=== PATIENT | male | born 1995 | race Caucasian/White ===

== ENCOUNTER 2020-05-30 19:42 | Emergency (ER) | payer BC, SELFPAY ==
[2020-05-30] MEDS ORDERED: FLUORESCEIN SODIUM 1 MG/WRAP ONE ×2 (20:55→21:05)
[2020-05-30] MEDS ORDERED: NA CHLORIDE 0.9% 1,000 ML ONE (20:55)
[2020-05-30] MEDS ORDERED: TETRACAINE HCL 0.5% 4ML OPTH ONE (20:55)
[2020-05-30] MEDS ORDERED: DIPHENHYDRAMINE 50 MG/ML VIAL ONE (20:55)
[2020-05-30] MEDS ORDERED: METOCLOPRAMIDE 10 MG/2mL INJ ONE (20:55)
[2020-05-30 20:57] LABS: Absolute Lymphocytes (CBC) 0.8 K/uL (0.7-4.9); Basophils % 0.4 % (0-1.3); Hematocrit 42.5 % (39.6-49.0); Lymphocytes % 12.6 % (15.3-44.8); MPV 9.1 fL (7.6-11.3); RBC Red Blood Cell Count 4.67 M/uL (4.33-5.43)
[2020-05-30 21:20] LABS: Bicarbonate 29 mmol/L (21-32); Glucose Level 95 mg/dL (74-106); Sodium Level 141 mmol/L (136-145)
[2020-05-30 21:21] LABS: ALT/SGPT 25 U/L (12-78); AST/SGOT 11 U/L (15-37); Albumin 4.2 g/dL (3.4-5.0); Alkaline Phosphatase 56 U/L (45-117); BUN Blood Urea Nitrogen 13 mg/dL (7-18); Bilirubin Direct 0.2 mg/dL (0-0.2); Bilirubin Total 0.5 mg/dL (0.2-1.0); Protein, Total 7.8 g/dL (6.4-8.2); Troponin (Emerg Dept Use Only) < 0.02 ng/mL (0.0-0.045)
[2020-05-30 22:06] LABS: Barbiturates NEGATIVE (NEGATIVE); Benzodiazepines NEGATIVE (NEGATIVE); Cocaine NEGATIVE (NEGATIVE); METHAMPHETAM NEGATIVE (NEGATIVE); Methadone NEGATIVE (NEGATIVE); Opiates NEGATIVE (NEGATIVE); Phencyclidine NEGATIVE (NEGATIVE); THC Cannibis NEGATIVE (NEGATIVE)
[2020-05-30 22:09] LABS: Urine Blood NEGATIVE (NEG); Urine Glucose NEGATIVE (NEG); Urine Protein TRACE (NEG); Urine Specific Gravity >1.030 (1.005-1.030)
--- NOTE | 2020-05-30 22:43 | ER ---
Nurse's Notes [facility] Name: Clifford Pulido Age: 24 yrs Sex: Male : 1995 Arrival Date: 05/30/2020 Time: 19:44 Bed 4 Private MD: Diagnosis: Headache;Dizziness and giddiness; Right Corneal Abrasion Presentation: 05/30 19:49 Chief complaint: Patient states: Last hour of work today saw floaters in field of ll1 vision. 30 min later had pain behind right eye with nausea. + dizziness at times. + pale. Coronavirus screen: Client denies travel out of the [place] in the last 14 days. nausea, Client presents with at least one sign or symptom that may indicate coronavirus-19. Standard/surgical mask placed on the client. Ebola Screen: Patient denies travel to an Ebola-affected area in the 21 days before illness onset. Initial Sepsis Screen: Does the patient meet any 2 criteria? No. Patient's initial sepsis screen is negative. Does the patient have a suspected source of infection? No. Patient's initial sepsis screen is negative. Risk Assessment: Do you want to hurt yourself or someone else? Patient reports no desire to harm self or others. Onset of symptoms was May 30, 2020. 19:49 Method Of Arrival: Ambulatory ll1 19:49 Acuity: GASTON 3 ll1 Triage Assessment: 20:30 Headache History: The patient has had previous headaches. General: Appears in no wh apparent distress. Pain: Pain began suddenly, Also complains of dizziness. Historical: - Allergies: 19:51 No Known Allergies; ll1 - PMHx: 19:51 Asthma; ll1 - Immunization history:: Flu vaccine is not up to date. - Social history:: Smoking status: Patient denies any tobacco usage or history of. Screenin:30 Abuse screen: Denies threats or abuse. Denies injuries from another. Nutritional wh screening: No deficits noted. Tuberculosis screening: No symptoms or risk factors identified. Fall Risk None identified. Assessment: 20:10 General: Appears in no apparent distress. Behavior is calm, cooperative, appropriate wh for age. Pain: Complains of pain in forehead and right orthodox Pain does not radiate. Pain currently is 6 out of 10 on a pain scale. 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 Gait is steady, Speech is normal, Facial symmetry appears normal, Pupils are PERRLA, Intact Reports blurred vision dizziness, headache in right parietal area, frontal area. Cardiovascular: Heart tones S1 S2. Respiratory: Airway is patent Respiratory effort is even, unlabored, Respiratory pattern is regular, symmetrical, Breath sounds are clear bilaterally. GI: Abdomen is flat, non-distended. : No signs and/or symptoms were reported regarding the genitourinary system. EENT: Reports blurred vision. Derm: Skin is intact, is healthy with good turgor, Skin is pink, warm \T\ dry. normal. Musculoskeletal: Circulation, motion, and sensation intact. 21:40 Reassessment: Patient appears in no apparent distress at this time. No changes from previously documented assessment. Patient and/or family updated on plan of care and expected duration. Pain level reassessed. Patient is alert, oriented x 3, equal unlabored respirations, skin warm/dry/pink. 22:45 Reassessment: Patient appears in no apparent distress at this time. Patient and/or family updated on plan of care and expected duration. Pain level reassessed. Patient is alert, oriented x 3, equal unlabored respirations, skin warm/dry/pink. Vital Signs: 19:49 BP 146 / 91; Pulse 88; Resp 17; Temp 98.1; Pulse Ox 95% ; Weight 108.86 kg; Height 6 ll1 ft. 3 in. (190.50 cm); Pain 5/10; 20:30 BP 116 / 77; Pulse 63; Resp 18; Pulse Ox 99% on R/A; 21:45 BP 118 / 96; Pulse 69; Resp 18; Pulse Ox 100% on R/A; 22:45 BP 145 / 74; Pulse 77; Resp 18; Pulse Ox 95% on R/A; 19:49 Body Mass Index 30.00 (108.86 kg, 190.50 cm) ll1 Visual Acuity: 22:34 Left Eye Visual acuity 20/25, Normal, React To Light, Reactive To Accomodation; Right wh Eye Visual acuity 20/25, Normal, React To Light, Reactive To Accomodation; Without Lenses; [place] Coma Score: 22:38 Eye Response: spontaneous(4). Verbal Response: oriented(5). Motor Response: obeys [facility] commands(6). Total: 15. ED Course: 19:44 Patient arrived in ED. cl3 19:51 Triage completed. ll1 19:51 Arm band placed on Patient placed in an exam room, on a stretcher. 1 19:52 Sean Boucher MD is Attending Physician. 7 20:00 Megan Lockhart is Primary Nurse. 20:30 Patient has correct armband on for positive identification. Bed in low position. Call light in reach. Side rails up X 1. Pulse ox on. NIBP on. 20:30 EKG done, by ED staff, reviewed by Sean Boucher MD. Inserted saline lock: 20 gauge in left antecubital area, using aseptic technique. Blood collected. 21:15 Assist provider with eye exam of both eyes. using fluorescein stain, Performed by Sean Boucher MD Patient tolerated well. 21:41 CT Head Brain wo Cont In Process Unspecified. EDMS 22:40 Ambrocio Graham MD is Referral Physician. [facility] 22:41 Amberly Hanson MD is Referral Physician. [facility] 23:00 IV discontinued, intact, bleeding controlled, No redness/swelling at site. Administered Medications: 20:50 Drug: NS 0.9% 1000 ml Route: IV; Rate: 1000 ml; Site: left antecubital; 22:59 Follow up: Response: No adverse reaction; IV Status: Completed infusion 20:52 Drug: Benadryl 25 mg Route: IVP; Site: left antecubital; 22:59 Follow up: Response: No adverse reaction 20:54 Drug: Reglan 10 mg Route: IVP; Site: left antecubital; 22:59 Follow up: Response: No adverse reaction 21:14 Drug: Tetracaine Drops 0.5 % 1 drops {Note: Administered by MD.} Route: Ophthalmic; Site: both eyes; 22:59 Follow up: Response: No adverse reaction Outcome: 22:42 Discharge ordered by MD. [facility] 22:59 Discharged to home ambulatory, with family. 22:59 Condition: stable 22:59 Discharge instructions given to patient, Instructed on discharge instructions, follow up and referral plans. medication usage, POC Demonstrated understanding of instructions, follow-up care, medications, POC Prescriptions given X 1. 23:00 Patient left the ED. Signatures: Dispatcher [employer] EDMegan Arzate Charde cl3 Terrell Ahuja RN RN ll1 Sean Boucher MD MD mh7
--- NOTE | 2020-05-30 22:43 | EDPHYS ---
Physician Documentation [facility] Name: Clifford Pulido Age: 24 yrs Sex: Male : 1995 Arrival Date: 05/30/2020 Time: 19:44 Bed 4 Private MD: ED Physician Sean Boucher HPI: 05/30 22:28 This 24 yrs old Male presents to ER via Ambulatory with complaints of mh7 Headache, Dizziness. 22:29 The patient complains of pain to the right eye. The patient complains of pain to the mh7 forehead. The patient describes the headache as intermittent, throbbing, waxing and waning. Onset: The symptoms/episode began/occurred today, at 16:00. Associated signs and symptoms: Pertinent positives: dizziness, nausea, Photophobia. Associated signs and symptoms: Pertinent positives: Pertinent negatives: altered mental status, fever, malaise, neck stiffness, paresthesias, rash, sinus congestion, sinus tenderness, vision loss, vomiting, weakness, vertigo. Severity of symptoms: At its worst the pain was moderate, earlier today, in the emergency department the pain has improved, moderately. Headache History: The patient has had previous headaches and this one is similar to previous episodes. The symptoms are alleviated by nothing. the symptoms are aggravated by lights, noise. Historical: - Allergies: 19:51 No Known Allergies; ll1 - PMHx: 19:51 Asthma; ll1 - Immunization history:: Flu vaccine is not up to date. - Social history:: Smoking status: Patient denies any tobacco usage or history of. ROS: 22:29 Constitutional: Negative for fever, chills, and weight loss, ENT: Negative for injury, mh7 pain, and discharge, Neck: Negative for injury, pain, and swelling, Cardiovascular: Negative for chest pain, palpitations, and edema, Respiratory: Negative for shortness of breath, cough, wheezing, and pleuritic chest pain, Back: Negative for injury and pain, : Negative for injury, bleeding, discharge, and swelling, MS/Extremity: Negative for injury and deformity, Skin: Negative for injury, rash, and discoloration, Psych: Negative for depression, anxiety, suicide ideation, homicidal ideation, and hallucinations, Allergy/Immunology: Negative for hives, rash, and allergies, Endocrine: Negative for neck swelling, polydipsia, polyuria, polyphagia, and marked weight changes, Hematologic/Lymphatic: Negative for swollen nodes, abnormal bleeding, and unusual bruising. Exam: 22:29 Constitutional: This is a well developed, well nourished patient who is awake, alert, mh7 and in no acute distress. Head/Face: Normocephalic, atraumatic. 22:29 ENT: Nares patent. No nasal discharge, no septal abnormalities noted. Tympanic membranes are normal and external auditory canals are clear. Oropharynx with no redness, swelling, or masses, exudates, or evidence of obstruction, uvula midline. Mucous membranes moist. Neck: Trachea midline, no thyromegaly or masses palpated, and no cervical lymphadenopathy. Supple, full range of motion without nuchal rigidity, or vertebral point tenderness. No Meningismus. Chest/axilla: Normal chest wall appearance and motion. Nontender with no deformity. No lesions are appreciated. Cardiovascular: Regular rate and rhythm with a normal S1 and S2. No gallops, murmurs, or rubs. Normal PMI, no JVD. No pulse deficits. Respiratory: Lungs have equal breath sounds bilaterally, clear to auscultation and percussion. No rales, rhonchi or wheezes noted. No increased work of breathing, no retractions or nasal flaring. Abdomen/GI: Soft, non-tender, with normal bowel sounds. No distension or tympany. No guarding or rebound. No evidence of tenderness throughout. Back: No spinal tenderness. No costovertebral tenderness. Full range of motion. Skin: Warm, dry with normal turgor. Normal color with no rashes, no lesions, and no evidence of cellulitis. MS/ Extremity: Pulses equal, no cyanosis. Neurovascular intact. Full, normal range of motion. Neuro: Awake and alert, GCS 15, oriented to person, place, time, and situation. Cranial nerves II-XII grossly intact. Motor strength 5/5 in all extremities. Sensory grossly intact. Cerebellar exam normal. Normal gait. Psych: Awake, alert, with orientation to person, place and time. Behavior, mood, and affect are within normal limits. 22:29 Eyes: Periorbital structures: appear normal, Pupils: equal, round, and reactive to light and accomodation, Extraocular movements: intact throughout, Conjunctiva: normal, Corneas: abrasion, that is moderate sized, on the right, at 6 o'clock, and small central abrasion, a fluorescein strip employed to appreciate the findings, Sclera: no appreciated abnormality, Lids and lashes: appear normal, funduscopic exam reveals no obvious abnormalities, Visual reyes: are intact, Nystagmus: is not appreciated, Examination of the other eye reveals no obvious gross abnormality, Intraocular pressure: right eye = 16mmHg, left eye = 16mmHg. Vital Signs: 19:49 BP 146 / 91; Pulse 88; Resp 17; Temp 98.1; Pulse Ox 95% ; Weight 108.86 kg; Height 6 ll1 ft. 3 in. (190.50 cm); Pain 5/10; 20:30 BP 116 / 77; Pulse 63; Resp 18; Pulse Ox 99% on R/A; wh 21:45 BP 118 / 96; Pulse 69; Resp 18; Pulse Ox 100% on R/A; wh 22:45 BP 145 / 74; Pulse 77; Resp 18; Pulse Ox 95% on R/A; wh 19:49 Body Mass Index 30.00 (108.86 kg, 190.50 cm) ll1 [place] Coma Score: 22:38 Eye Response: spontaneous(4). Verbal Response: oriented(5). Motor Response: obeys mh7 commands(6). Total: 15. Visual Acuity: 22:34 Left Eye Visual acuity 20/25, Normal, React To Light, Reactive To Accomodation; Right wh Eye Visual acuity 20/25, Normal, React To Light, Reactive To Accomodation; Without Lenses; MDM: 20:20 Patient medically screened. mh7 22:38 Differential diagnosis: cluster headache, glaucoma, hypoglycemia, hyponatremia, mh7 intracerebral hemorrhage, migraine, sinusitis, tension headache, Corneal Abrasion. Data reviewed: vital signs, nurses notes, lab test result(s), cardiac enzymes, CBC, drug level(s), electrolytes, Flu: urinalysis, EKG, radiologic studies, CT scan. Data interpreted: Pulse oximetry: on room air is 100 %. Interpretation: normal. Counseling: I had a detailed discussion with the patient and/or guardian regarding: the historical points, exam findings, and any diagnostic results supporting the discharge/admit diagnosis, lab results, radiology results, the need for outpatient follow up, to return to the emergency department if symptoms worsen or persist or if there are any questions or concerns that arise at home. Response to treatment: the patient's symptoms have resolved after treatment, the patient's blood pressure is in an acceptable range, mental status has returned to baseline, the patient no longer shows bradycardia, the patient is not short of breath, the patient is not tachycardic, the patient's pain is gone, the patient's temperature has normalized. 05/30 20:22 Order name: CBC with Diff; Complete Time: 21:14 mh7 05/30 20:22 Order name: Basic Metabolic Panel; Complete Time: 21:28 mh7 05/30 20:22 Order name: LFT's; Complete Time: 21:28 mh7 05/30 20:22 Order name: UDS; Complete Time: 22:26 mh7 05/30 20:22 Order name: Influenza Screen (a \T\ B); Complete Time: 21:14 mh7 05/30 20:22 Order name: Urine Dipstick-Ancillary (obtain specimen); Complete Time: 21:31 mh7 05/30 20:22 Order name: CT Head Brain wo Cont mh7 05/30 20:59 Order name: Troponin (Emerg Dept Use Only); Complete Time: 21:28 EDMS 05/30 21:36 Order name: Urine Dipstick--Ancillary (enter results); Complete Time: 22:26 tt3 05/30 20:36 Order name: EKG - Nurse/Tech; Complete Time: 20:53 mh7 05/30 20:38 Order name: Fluoresene Opth strip; Complete Time: 20:53 mh7 Administered Medications: 20:50 Drug: NS 0.9% 1000 ml Route: IV; Rate: 1000 ml; Site: left antecubital; 22:59 Follow up: Response: No adverse reaction; IV Status: Completed infusion 20:52 Drug: Benadryl 25 mg Route: IVP; Site: left antecubital; 22:59 Follow up: Response: No adverse reaction 20:54 Drug: Reglan 10 mg Route: IVP; Site: left antecubital; 22:59 Follow up: Response: No adverse reaction 21:14 Drug: Tetracaine Drops 0.5 % 1 drops {Note: Administered by MD.} Route: Ophthalmic; Site: both eyes; 22:59 Follow up: Response: No adverse reaction wh Disposition: 05/30/20 22:42 Discharged to Home. Impression: Headache, Dizziness and giddiness, Right Corneal Abrasion. - Condition is Stable. - Discharge Instructions: Dizziness, General Headache Without Cause, Corneal Abrasion, [id number], Dizziness, [id number]. - Prescriptions for Ciloxan 0.3 % Ophthalmic Drops - instill 2 drop by OPHTHALMIC route every 6 hours for 7 days; 5 milliliter. - Medication Reconciliation Form, Thank You Letter, Antibiotic Education, Prescription Opioid Use form. - Follow up: Ambrocio Graham MD; When: 1 - 2 days; Reason: Worsening of condition, Recheck today's complaints. Follow up: Private Physician; When: 1 - 2 days; Reason: Worsening of condition, Recheck today's complaints, Continuance of care, Re-evaluation by your physician. Follow up: Amberly Hanson MD; When: 1 - 2 days; Reason: Worsening of condition, Recheck today's complaints. - Problem is new. - Symptoms have improved. Signatures: Dispatcher [employer] [facility] Megan Lockhart Terrell Ahuja RN RN ll1 Sean Boucher MD MD mh7 Corrections: (The following items were deleted from the chart) 20:59 20:51 TROPONIN (EMERG DEPT USE ONLY)+C.LAB.BRZ ordered. [facility] EDID 23:00 22:42 05/30/2020 22:42 Discharged to Home. Impression: Headache; Dizziness and wh giddiness; Right Corneal Abrasion. Condition is Stable. Forms are Medication Reconciliation Form, Thank You Letter, Antibiotic Education, Prescription Opioid Use. Follow up: Ambrocio Graham; When: 1 - 2 days; Reason: Worsening of condition, Recheck today's complaints. Follow up: Private Physician; When: 1 - 2 days; Reason: Worsening of condition, Recheck today's complaints, Continuance of care, Re-evaluation by your physician. Follow up: Amberly Hanson; When: 1 - 2 days; Reason: Worsening of condition, Recheck today's complaints. Problem is new. Symptoms have improved. 7
[2020-05-30 23:07] VITALS: TEMP 98.1
[2020-05-30 23:12] VITALS: BP 145/74; O2SAT 95
--- NOTE | 2020-05-31 14:33 | RAD REPORT ---
EXAM DESCRIPTION: CT - Head Brain Wo Cont - 05/31/2020 6:47 am CLINICAL HISTORY: DIZZINESS TECHNIQUE: Contiguous axial CT images obtained through the brain without IV contrast. Coronal and sa gittal reformatted images were provided. This exam was performed according to our departmental dose-optimization program, which includes autom ated exposure control, adjustment of the mA and/or kV according to patient size and/or use of iterati ve reconstruction technique. COMPARISON: None available for comparison FINDINGS: Brain: No significant white matter changes. No focal mass effect. Gay-white matter differ entiation is within normal limits. No hemorrhage. Ventricles: No ventriculomegaly or midline shift. Extra-axial spaces: No extra-axial collection or hemorrhage. Paranasal sinuses and mastoid air cells: Well-aerated Vessels: Unremarkable Bones: Unremarkable Soft tissues: Unremarkable IMPRESSION: No acute intracranial or extra-axial abnormality. Electronically signed by: Marybeth Kimball MD 05/30/2020 10:02 PM CDT Due to temporary technical issues with the PACS/Fluency reporting system, reports are being signed by the in house radiologist without review as a courtesy to ensure prompt reporting. The interpreting r adiologist is fully responsible for the content of the report.
--- NOTE | 2020-06-01 05:58 | EKG ---
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
--- OUTSIDE RECORDS SUMMARY | 2020-06-02 09:04 | XMS REPORT | Clinical Summary ---
:1995 Author Organization [facility] Address [address] [place] [address] Care Team Providers Name Role Phone Asked, Pcp Primary Care Provider Unavailable Allergies No Known Active Allergies Medications Medication Sig Dispensed Refills Start Date End Date Status naproxen (NAPROSYN) 500 Take 1 tablet 20 tablet 0 05/18/2019 1 MG tablet (500 mg total) by mouth 2 (two) times a day with meals for 30 days. cyclobenzaprine Take 1 tablet 20 tablet 0 05/18/2019 9 (FLEXERIL) 10 mg tablet (10 mg total) by mouth 2 (two) times a day as needed for muscle spasms for up to 30 days. Active Problems Not on file Social History Tobacco Use Types Packs/Day Years Used Date Never Smoker Smokeless Tobacco: Never Used Alcohol Use Drinks/Week oz/Week Comments Yes Sex Assigned at Date Recorded Not on file Last Filed Vital Signs Not on file Plan of Treatment Not on file Results Not on fileafter 06/01/2019 Advance Directives For more information, please contact: [phone] Type Date Recorded Patient English Instructor Explanati on Advance Directives, Living Will 05/18/2019 2:30 AM and Medical Power of Channel Marketing Coordinator
== END 2020-05-30 23:00 | disposition home or self-care (01) ==
LOC: ER 19:42
DX: R42 Dizziness and giddiness (principal); S05.01XA Injury of conjunctiva and corneal abrasion without foreign body, right eye, initial encounter
CPT/HCPCS: 36415; 70450; 80048; 80076; 80307; 81003; 84484; 85025; 87804; 93005; 96361; 96374; 96375; 99284; J1200; J2765; J7030

== ENCOUNTER 2020-10-03 11:55 | Emergency (ER) | payer BC, SELFPAY ==
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
[2020-10-03] MEDS ORDERED: CODEINE 30MG/APAP 300MG TAB ONE (14:13)
[2020-10-03 14:30] VITALS: BP 134/93; TEMP 98; O2SAT 99
--- OUTSIDE RECORDS SUMMARY | 2020-10-04 22:37 | XMS REPORT | Clinical Summary ---
:1995 Author Organization [facility] Address [address] [place] [address] Care Team Providers Name Role Phone Asked, Pcp Primary Care Provider Unavailable Allergies No Known Active Allergies Medications No known medications Active Problems Not on file Social History Tobacco Use Types Packs/Day Years Used Date Never Smoker Smokeless Tobacco: Never Used Alcohol Use Drinks/Week oz/Week Comments Yes Sex Assigned at Date Recorded Not on file Last Filed Vital Signs Not on file Plan of Treatment Not on file Results Not on fileafter 10/04/2019 Advance Directives For more information, please contact: [phone] Type Date Recorded Patient [facility] Director Explanati on Advance Directives, Living Will 05/18/2019 2:30 AM and Medical Power of Cooker Chip
== END 2020-10-03 14:00 | disposition home or self-care (01) ==
LOC: ER 11:55
PROC: 0HQ0XZZ Repair Scalp Skin, External Approach (ICD-10-PCS; principal; 2020-10-03)
DX: S01.01XA Laceration without foreign body of scalp, initial encounter (principal); Z23 Encounter for immunization; X99.0XXA Assault by sharp glass, initial encounter; Y92.009 Unspecified place in unspecified non-institutional (private) residence as the place of occurrence of the external cause; J45.909 Unspecified asthma, uncomplicated
CPT/HCPCS: 70450; 99283

== ENCOUNTER 2020-10-12 17:44 | Emergency (ER) | payer SELFPAY, BC ==
--- NOTE | 2020-10-12 18:12 | ER ---
Nurse's Notes [facility] Name: Clifford Pulido Age: 25 yrs Sex: Male : 1995 Arrival Date: 10/12/2020 Time: 17:45 Bed Waiting Private MD: Diagnosis: Encounter for removal of sutures-3 serafin Presentation: 10/12 18:07 Chief complaint: Patient states: Needs serafin removed from Left side of head. No fever ll1 , redness, or drainage. Coronavirus screen: Client denies travel out of the [place] in the last 14 days. At this time, the client does not indicate any symptoms associated with coronavirus-19. Ebola Screen: Patient denies travel to an Ebola-affected area in the 21 days before illness onset. Initial Sepsis Screen: Does the patient meet any 2 criteria? No. Patient's initial sepsis screen is negative. Does the patient have a suspected source of infection? Yes: Skin breakdown/wound. Risk Assessment: Do you want to hurt yourself or someone else? Patient reports no desire to harm self or others. Onset of symptoms was October 03, 2020. 18:07 Method Of Arrival: Ambulatory ll1 18:07 Acuity: GASTON 5 ll1 Triage Assessment: 18:08 General: Appears in no apparent distress. Behavior is calm, cooperative, appropriate ll1 for age. Pain: Denies pain. Derm: Reports 3 serafin removed from L forehead. Tolerated well. Historical: - Allergies: 18:08 No Known Drug Allergies; ll1 - PMHx: 18:08 Asthma; ll1 - PSHx: 18:08 None; ll1 - Immunization history:: Flu vaccine is not up to date. - Social history:: Smoking status: Patient denies any tobacco usage or history of. Screenin:08 Abuse screen: Denies threats or abuse. Nutritional screening: No deficits noted. ll1 Tuberculosis screening: No symptoms or risk factors identified. Fall Risk None identified. Total Bean Fall Scale indicates No Risk (0-24 pts). Vital Signs: 18:07 BP 134 / 94; Pulse 71; Resp 17; Temp 97.2; Pulse Ox 99% ; Weight 108.86 kg; Height 6 ll1 ft. 3 in. (190.50 cm); Pain 0/10; 18:07 Body Mass Index 30.00 (108.86 kg, 190.50 cm) ll1 ED Course: 17:45 Patient arrived in ED. rg4 17:57 Chintan Haider PA is PHCP. cp 17:57 Jasmin De Luna MD is Attending Physician. cp 18:08 Triage completed. ll1 18:08 Arm band placed on Patient placed in an exam room, on a stretcher. ll1 18:09 Patient has correct armband on for positive identification. Bed in low position. Call ll1 light in reach. Side rails up X 1. Cardiac monitoring not applicable on this patient. 18:09 No provider procedures requiring assistance completed. Patient did not have IV access ll1 during this emergency room visit. Administered Medications: No medications were administered Outcome: 18:11 Discharge ordered by . cp 18:15 Discharged to home ambulatory. ll1 18:15 Condition: stable 18:15 Discharge instructions given to patient, Instructed on discharge instructions, follow up and referral plans. Demonstrated understanding of instructions, follow-up care. 18:15 Patient left the ED. 1 Signatures: Chintan Haider PA PA cp Garcia, Rubi rg4 Terrell Ahuja, RN RN 1
--- NOTE | 2020-10-12 18:12 | EDPHYS ---
Physician Documentation [facility] Name: Clifford Pulido Age: 25 yrs Sex: Male : 1995 Arrival Date: 10/12/2020 Time: 17:45 Bed Waiting Private MD: ED Physician Jasmin De Luna HPI: 10/12 18:09 This 25 yrs old Male presents to ER via Ambulatory with complaints of Staple cp Removal. 18:09 The patient has serafin on the scalp. Previous treatment: The patient was initially cp treated on October 03, 2020, Treatment type: The patient's original treatment included serafin. Sutures/serafin progress: The patient has no c/o's. The wound is well-healing with no redness, swelling, discharge, or dehiscence reported. Historical: - Allergies: 18:08 No Known Drug Allergies; ll1 - PMHx: 18:08 Asthma; ll1 - PSHx: 18:08 None; ll1 - Immunization history:: Flu vaccine is not up to date. - Social history:: Smoking status: Patient denies any tobacco usage or history of. ROS: 18:09 All other systems are negative. cp Exam: 18:09 Head/face: Exam is negative for swelling, tenderness, left anterior scalp laceration cp appears well healed with [address] 18:09 Skin: Wound recheck: Staple laceration closure: the wound is healing well, the edges are well approximated, no evidence of dehiscence, no drainage, no erythema, no swelling. Vital Signs: 18:07 BP 134 / 94; Pulse 71; Resp 17; Temp 97.2; Pulse Ox 99% ; Weight 108.86 kg; Height 6 ll1 ft. 3 in. (190.50 cm); Pain 0/10; 18:07 Body Mass Index 30.00 (108.86 kg, 190.50 cm) ll1 MDM: 18:10 Data reviewed: vital signs, nurses notes, and as a result, I will discharge patient. cp 18:11 Patient medically screened. cp Administered Medications: No medications were administered Disposition: 18:15 Chart complete. cp 18:24 Co-signature as Attending Physician, Jasmin De Luna MD. ma2 Disposition: 10/12/20 18:11 Discharged to Home. Impression: Encounter for removal of sutures - 3 serafin. - Condition is Stable. - Discharge Instructions: Suture Removal, Care After. - Medication Reconciliation Form, Thank You Letter, Antibiotic Education, Prescription Opioid Use form. - Follow up: Private Physician; When: 1 - 2 days; Reason: Worsening of condition. - Problem is new. - Symptoms have improved. Signatures: Chintan Haider PA PA Jasmin Zambrano MD MD ma2 Terrell Ahuja RN RN ll1 Corrections: (The following items were deleted from the chart) 18:15 18:11 10/12/2020 18:11 Discharged to Home. Impression: Encounter for removal of sutures ll1 - 3 serafin. Condition is Stable. Forms are Medication Reconciliation Form, Thank You Letter, Antibiotic Education, Prescription Opioid Use. Follow up: Private Physician; When: 1 - 2 days; Reason: Worsening of condition. Problem is new. Symptoms have improved. cp
[2020-10-12 18:20] VITALS: BP 134/94; TEMP 97.2; O2SAT 99
== END 2020-10-12 18:15 | disposition home or self-care (01) ==
LOC: ER 17:44
DX: Z48.02 Encounter for removal of sutures (principal)
CPT/HCPCS: 99281

== ENCOUNTER 2022-03-25 12:14 | Emergency (ER) | payer SELFPAY ==
[2022-03-25] MEDS ORDERED: KETOROLAC 30 MG/ML INJ ONE (12:51)
[2022-03-25] MEDS ORDERED: CLINDAMYCIN 900MG/D5W 900 MG/50 ML IVPB IV ONE (12:51)
[2022-03-25] MEDS ORDERED: NA CHLORIDE 0.9% 1,000 ML ONE (12:51)
[2022-03-25 13:07] LABS: Absolute Lymphocytes (CBC) 1.1 K/uL (0.7-4.9); Hematocrit 44.1 % (39.6-49.0); Lymphocytes % 13.2 % (15.3-44.8); MCV 91.3 fL (80-100); MPV 8.1 fL (7.6-11.3); RBC Red Blood Cell Count 4.83 M/uL (4.33-5.43)
[2022-03-25 13:20] LABS: Potassium 3.8 mmol/L (3.5-5.1); Protein, Total 7.7 g/dL (6.4-8.2)
--- NOTE | 2022-03-25 13:59 | RAD REPORT ---
EXAM DESCRIPTION: CT - FC CLINICAL HISTORY: Maxillary/facial abscess COMPARISON: <Comparisons> TECHNIQUE: Axial 2 mm thick images of the face were obtained with sagittal and coronal reconstructio n images. All CT scans are performed using dose optimization technique as appropriate and may include automated exposure control or mA/KV adjustment according to patient size. FINDINGS: Dental caries and periapical lucencies associated with the right maxillary first and secon d molars. A small abscess is noted measuring approximately 11 millimeters along the lateral aspect of the maxilla near the roots of these teeth.The mandible is intact. No fractures identified. The globes and orbital contents are grossly unremarkable.Mucous retention cysts in the maxillary sinu ses. IMPRESSION: Periapical lucencies associated with the right upper second and third molar consistent p eriapical abscesses.
--- NOTE | 2022-03-25 14:30 | ER ---
Nurse's Notes [facility] Name: Clifford Pulido Age: 26 yrs Sex: Male : 1995 Arrival Date: 03/25/2022 Time: 12:18 Bed 11 Private MD: Diagnosis: Periapical abscess without sinus Presentation: 03/25 12:28 Chief complaint: Patient states: R upper jaw tooth and gum pain for 3 days. No fever. ss No N/V. Coronavirus screen: Vaccine status: Patient reports being unvaccinated. Client denies travel out of the [place] in the last 14 days. At this time, the client does not indicate any symptoms associated with coronavirus-19. Ebola Screen: Patient denies travel to an Ebola-affected area in the 21 days before illness onset. Initial Sepsis Screen: Does the patient meet any 2 criteria? HR > 90 bpm. No. Patient's initial sepsis screen is negative. Does the patient have a suspected source of infection? Yes: Other: tooth/gum. Risk Assessment: Do you want to hurt yourself or someone else? Patient reports no desire to harm self or others. Onset of symptoms was March 23, 2022. 12:28 Method Of Arrival: Ambulatory ss 12:28 Acuity: GASTON 4 ss Triage Assessment: 12:29 General: Appears uncomfortable, Behavior is cooperative, appropriate for age. Pain: ss Complains of pain in R jaw Pain currently is 10 out of 10 on a pain scale. Quality of pain is described as aching. EENT: Reports pain since R upper jaw tooth. Historical: - Allergies: 12:27 unknown antibiotic; ss - PMHx: 12:27 Asthma; ss - PSHx: 12:27 None; ss - Immunization history:: Client reports having NOT received the Covid vaccine. - Social history:: Smoking status: Patient denies any tobacco usage or history of. Screenin:39 Abuse screen: Denies threats or abuse. Nutritional screening: No deficits noted. ll1 Tuberculosis screening: No symptoms or risk factors identified. Fall Risk Total Bean Fall Scale indicates No Risk (0-24 pts). Assessment: 12:54 Reassessment: No changes from previously documented assessment. Patient and/or family ll1 updated on plan of care and expected duration. Pain level reassessed. Patient is alert, oriented x 3, equal unlabored respirations, skin warm/dry/pink. 14:48 Reassessment: Patient appears in no apparent distress at this time. Patient and/or ss family updated on plan of care and expected duration. Pain level reassessed. Patient states feeling better. Patient states symptoms have improved. Vital Signs: 12:28 BP 141 / 99; Pulse 97; Resp 17; Temp 98.8; Pulse Ox 100% ; Weight 113.4 kg; Height 6 ss ft. 3 in. (190.50 cm); Pain 10/10; 12:28 Body Mass Index 31.25 (113.40 kg, 190.50 cm) ED Course: 12:18 Patient arrived in ED. rg4 12:22 [facility] Duran [facility] jh7 12:22 Loreeli Land MD is Attending Physician. 7 12:29 Triage completed. ss 12:29 Arm band placed on. ss 12:30 Patient placed in an exam room, on a stretcher. ll1 12:38 Terrell Ahuja, SARAH is Primary Nurse. ll1 12:39 Patient has correct armband on for positive identification. Bed in low position. Call ll1 light in reach. Side rails up X 1. Cardiac monitoring not applicable on this patient. 12:54 Inserted saline lock: 20 gauge in left antecubital area, using aseptic technique. Blood mb7 collected. 12:54 CMP Sent. mb7 12:54 CBC with Diff Sent. mb7 13:50 CT Maxillofacial W/cont In Process Unspecified. EDMS 14:48 No provider procedures requiring assistance completed. IV discontinued, intact, ss bleeding controlled, No redness/swelling at site. Pressure dressing applied. Administered Medications: 12:23 Drug: Ketorolac 30 mg Route: IVP; Site: left antecubital; 14:49 Follow up: Response: No adverse reaction; Pain is decreased 12:57 Drug: NS 0.9% 1000 ml Route: IV; Rate: 1 bolus; Site: left antecubital; ss 14:50 Follow up: IV Status: Completed infusion; IV Intake: 1000ml 12:57 Drug: Clindamycin 900 mg Route: IVPB; Infused Over: 30 mins; Site: left antecubital; 13:30 Follow up: IV Status: Completed infusion; IV Intake: 50ml ss Medication: 12:39 VIS not applicable for this client. ll1 Intake: 13:30 IV: 50ml; Total: 50ml. ss 14:50 IV: 1000ml; Total: 1050ml. ss Outcome: 14:30 Discharge ordered by . aisha 14:50 Discharged to home ambulatory. ss 14:50 Condition: good 14:50 Discharge instructions given to patient, Instructed on discharge instructions, follow up and referral plans. medication usage, Demonstrated understanding of instructions, follow-up care, medications, Prescriptions given X 2. 14:50 Patient left the ED. ss Signatures: Dispatcher [employer] EDMS Dana Cerda RN RN ss Garcia, Rubi rg4 Terrell Ahuja RN RN ll1 Madai Echols7 Kerry Duran FNP FNP jh7
--- NOTE | 2022-03-25 14:30 | EDPHYS ---
Physician Documentation [facility] Name: Clifford Pulido Age: 26 yrs Sex: Male : 1995 Arrival Date: 03/25/2022 Time: 12:18 Bed 11 Private MD: ED Physician Lorelei Land Historical: - Allergies: 03/25 12:27 unknown antibiotic; ss - PMHx: 12:27 Asthma; ss - PSHx: 12:27 None; ss - Immunization history:: Client reports having NOT received the Covid vaccine. - Social history:: Smoking status: Patient denies any tobacco usage or history of. Vital Signs: 12:28 BP 141 / 99; Pulse 97; Resp 17; Temp 98.8; Pulse Ox 100% ; Weight 113.4 kg; Height 6 ss ft. 3 in. (190.50 cm); Pain 10/10; 12:28 Body Mass Index 31.25 (113.40 kg, 190.50 cm) ss MDM: 12:30 Patient medically screened. [facility] 03/25 12:38 Order name: CBC with Diff; Complete Time: 13:33 [facility] 03/25 12:38 Order name: CMP; Complete Time: 13:33 [facility] 03/25 12:38 Order name: CT Maxillofacial W/cont; Complete Time: 14:26 [facility] 03/25 12:41 Order name: IV Start; Complete Time: 12:54 ll1 Administered Medications: 12:23 Drug: Ketorolac 30 mg Route: IVP; Site: left antecubital; ss 14:49 Follow up: Response: No adverse reaction; Pain is decreased ss 12:57 Drug: NS 0.9% 1000 ml Route: IV; Rate: 1 bolus; Site: left antecubital; ss 14:50 Follow up: IV Status: Completed infusion; IV Intake: 1000ml ss 12:57 Drug: Clindamycin 900 mg Route: IVPB; Infused Over: 30 mins; Site: left antecubital; ss 13:30 Follow up: IV Status: Completed infusion; IV Intake: 50ml ss Disposition Summary: 03/25/22 14:30 Discharge Ordered Location: Home [facility] Problem: new [facility] Symptoms: have improved [facility] Condition: Stable [facility] Diagnosis - Periapical abscess without sinus [facility] Followup: [facility] - With: Private Physician - When: 1 - 2 days - Reason: Recheck today's complaints Discharge Instructions: - Discharge Summary Sheet [facility] - Dental Abscess [facility] Forms: - Medication Reconciliation Form [facility] - Thank You Letter [facility] - Antibiotic Education [facility] Prescriptions: - Augmentin 875-125 mg Oral Tablet - take 1 tablet by ORAL route every 12 hours for 10 days; 20 tablet; Refills: 0, [facility] Product Selection Permitted - Naprosyn 500 mg Oral Tablet - take 1 tablet by ORAL route 2 times per day take with food; 30 tablet; Refills: [facility] 0, Product Selection Permitted Signatures: Dispatcher [employer] Dana Olvera RN RN ss Terrell Ahuja RN RN ll1 Kerry Duran FNP [place] [id number]
[2022-03-25 15:17] VITALS: BP 141/99; TEMP 98.8; O2SAT 100
== END 2022-03-25 14:50 | disposition home or self-care (01) ==
LOC: ER 12:14
DX: K04.7 Periapical abscess without sinus (principal)
CPT/HCPCS: 36415; 70487; 80053; 85025; 96361; 96365; 96375; 99284; J7030; Q9967

== ENCOUNTER 2022-08-09 13:12 | Emergency (ER) | payer SELFPAY ==
--- OUTSIDE RECORDS SUMMARY | 2022-08-09 13:15 | XMS REPORT | Continuity of Care Document ---
:1995 Author Organization [facility] t Address [address] [place] [address] Care Team Providers Name Role Phone PCP, PATIENT DOES NOT HAVE A Primary Care Physician UnavailLAINA Fernandez Attending Clinician Unavailable LESTER SOLIZ Attending Clinician Unavailable Lester Carrillo Attending Clinician Jean Delgadillo DO Attending Clinician Latasha Vigil MD Attending Clinician LATASHA VIGIL Attending Clinician Unavailable Payers Payer Name Policy Type Policy Number Effective Date Expiration Date S [facility] [id number] 2014 00:00:00 Problems Condition Condition Condition Status Onset Resolution Last Treating Co mments Source Name Details Category Date Date Treatment Clinician Date No known No known Disease Unive rs active active ity of problems problems [facility] Allergies, Adverse Reactions, Alerts Allergy Allergy Status Severity Reaction(s) Onset Inactive Treating Comm ents Source Name Type Date Date Clinician NO KNOWN Drug Active Univers ALLERGIE Class ity of S [facility] Social History Social Habit Start Date Stop Date Quantity Comments Source Exposure to Not sure [facility]-CoV-2 [facility] (event) [place] Tobacco use and 2019-05-18 2019-05-[address] [facility] exposure 00:00:00 00:00:00 non-user Alcohol intake 2019-05-18 2019-05-18 Current drinker [facility] 00:00:00 00:00:00 of alcohol (finding) Sex Ass[birth year] [facility] 00:00:00 00:00:00 Smoking Status Start Date Stop Date Source Unknown if ever smoked [facility] Never smoked tobacco [facility] Medications Ordered Filled Start Stop Current Ordering Indication Dosage Frequency Signature Comments Components Source Medication Medication Date Date Medication? Clinician (SIG) Name Name ketorolac 2020-08 30mg 30 mg, Unive rs (TORADOL) 0-16 10-16 Slow IV ity of injection 09:45: 08:40 [place], [place] 30 mg 00 :00 ONCE, 1 Medical dose, On Branch 06/10/21 at 0445, Routine
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 Indication s: acute pain cephALEXin 2020-08 Yes [id number] 500mg Take 1 Univers (KEFLEX) 0-16 capsule by ity o f 500 mg 00:00: mouth 4 [place] capsule 00 (four) Medical times Branch daily. traMADoL 2020-08 Yes [id number] 50mg Take 1 Univers (ULTRAM) 50 0-16 tablet by ity of mg tablet 00:00: mouth [place] 00 every 6 Medical (six) Branch hours as needed for Pain (scale 7-10). Indication s: acute pain cephALEXin 2020-08 Yes [id number] 500mg Take 1 Univers (KEFLEX) 0-16 capsule by ity o f 500 mg 00:00: mouth 4 [place] capsule 00 (four) Medical times Branch daily. traMADoL 2020-08 Yes [id number] 50mg Take 1 Univers (ULTRAM) 50 0-16 tablet by ity of mg tablet 00:00: mouth [place] 00 every 6 Medical (six) Branch hours as needed for Pain (scale 7-10). Indication s: acute pain cephALEXin 2020-08 Yes [id number] 500mg Take 1 Univers (KEFLEX) 0-16 capsule by ity o f 500 mg 00:00: mouth 4 [place] capsule 00 (four) Medical times Branch daily. No known No No known Metho di medications - medication st 02:07: [facility] l traMADOL 2017-0 Yes 50mg Take 1 Univers (ULTRAM) 50 4-15 tablet by ity of mg tablet 00:00: mouth [place] 00 every 6 Medical (six) Branch hours as needed for Pain (scale 4-6). Jordy Mccain PA-C / Danyel Lara MD RANDY# [id number] DPS# [id number] x Lic.# [id number] NPI# [id number] traMADOL 2017-0 Yes 50mg Take 1 Univers (ULTRAM) 50 4-15 tablet by ity of mg tablet 00:00: mouth [place] 00 every 6 Medical (six) Branch hours as needed for Pain (scale 4-6). Jordy Mccain PA-C / Danyel Lara MD RANDY# [id number] DPS# [id number] x Lic.# [id number] NPI# [id number] traMADOL 2017-0 Yes 50mg Take 1 Univers (ULTRAM) 50 4-15 tablet by ity of mg tablet 00:00: mouth [place] 00 every 6 Medical (six) Branch hours as needed for Pain (scale 4-6). Jordy Mccain PA-C / Danyel Lara MD RANDY# [id number] DPS# [id number] x Lic.# [id number] NPI# [id number] Immunizations Ordered Filled Immunization Date Status Comments [facility] e Immunization Name Name Td 2016-12-08 Completed [facility] 00:00:00 [facility] Td 2016-12-08 Completed [facility] 00:00:00 [facility] Td 2016-12-08 Completed [facility] 00:00:00 [facility] Vital Signs Vital Name Observation Time Observation Value Comments Source Body temperature 2021-06-20 16:01:00 36.22 [facility] Respiratory rate 2021-06-20 16:01:00 18 /min [facility] Body height 2021-06-20 16:01:00 190.5 cm [facility] Body weight 2021-06-20 16:01:00 113.399 kg [facility] BMI 2021-06-20 16:01:00 31.25 kg/m2 [facility] [place] [facility] Oxygen saturation in 2021-06-20 16:01:00 100 /min University of Arterial blood by [facility] Pulse oximetry Branch Systolic blood 2021-06-20 16:01:00 140 mm[Hg] Univer [facility]ity [facility] [place] [facility] Diastolic blood 2021-06-20 16:01:00 99 mm[Hg] Unive rsity of pressure [place] [facility] Heart rate 2021-06-20 16:01:00 99 /min [facility] [place] [facility] Systolic blood 2021-06-15 23:52:00 139 mm[Hg] Univer sity [facility] [place] [facility] Diastolic blood 2021-06-15 23:52:00 85 mm[Hg] Unive rsity [facility] Heart rate 2021-06-15 23:52:00 93 /min [facility] [place] [facility] Body temperature 2021-06-15 23:52:00 37.28 Annie [facility] [place] [facility] Respiratory rate 2021-06-15 23:52:00 16 /min [facility] Body height 2021-06-15 23:52:00 192 cm [facility] Body weight 2021-06-15 23:52:00 113.399 kg [facility] BMI 2021-06-15 23:52:00 30.76 kg/m2 [facility] [place] [facility] Oxygen saturation in 2021-06-15 23:52:00 98 /min [facility] Arterial blood by [facility] Pulse oximetry Branch Heart rate 2021-06-10 10:30:00 88 /min [facility] [place] [facility] Oxygen saturation in 2021-06-10 10:30:00 99 /min University of Arterial blood by [facility] Pulse oximetry Branch Systolic blood 2021-06-10 10:29:00 130 mm[Hg] Univer sity [facility] [place] [facility] Diastolic blood 2021-06-10 10:29:00 76 mm[Hg] Unive rsity [facility] Body temperature 2021-06-10 10:28:00 36.83 [facility] Respiratory rate 2021-06-10 10:28:00 19 /min [facility] Body weight 2021-06-10 08:00:57 113.399 kg [facility] BMI 2021-06-10 08:00:57 31.25 kg/m2 [facility] Body height 2021-06-10 08:00:57 190.5 cm [facility] Procedures Procedure Date / Time Performed Performing Clinician Sourc e CONSENT/REFUSAL FOR 2021-06-20 15:57:09 Doctor Unassigned, No [facility] DIAGNOSIS AND Name [facility] TREATMENT NOTICE OF PRIVACY 2021-06-15 23:44:49 Doctor Unassigned, No [facility] Name [facility] GA RECMPL WND 2021-06-10 10:33:[address] [facility] SCALP,EXTR 2.6-7.5 CM Medical Br anch XR CHEST 1 VW 2021-06-10 07:40:10 Latasha Vigil [facility] CT CERVICAL SPINE WO 2021-06-10 07:34:36 Latasha Vigil [facility] CONTRAST [facility] Branch CT 2021-06-10 07:34:[address] [facility] MAXILLOFACIAL/MANDIBL Medical Br anch E WO CONTRAST CT HEAD WO CONTRAST 2021-06-10 07:34:36 Latasha Vigil [facility] COVID-19 (ID NOW 2021-06-10 07:34:[address] [facility] RAPID TESTING) [facility] COMP. METABOLIC PANEL 2021-06-10 07:19:00 Latasha Vigil [facility] ([id number]) [facility] CBC WITH DIFF 2021-06-10 07:19:00 Latasha Vigil [facility] Encounters Start End Encounter Admission Attending Care Care Encounter Source Date/Time Date/Time Type Type Clinicians Facility Department ID 2021-09-22 2021-09-22 Outpatient RADHA ELLIS [id number] Radha 10:30:00 10:30:00 LAINA pina 2021-09-20 2021-09-20 Outpatient RADHA ELLIS [id number] Radha 09:30:00 09:30:00 LAINA pina 2021-06-20 2021-06-20 Emergency X [facility] ERT [id number] Univers 11:02:00 [facility]03[id number] Univers 11:02:00 12:03:00 Lester Stokes [id number] ity of [place] [id number] [facility] [id number] [address] 2021-06-15 2021-06-15 [facility] [id number] Univers 18:54:00 19:49:00 Jean Stokes [id number] i ty of [place] [id number] [facility] [id number] [address] 2021-06-15 2021-06-15 Emergency X [facility] ERT [id number] Univers 18:43:00 18:43:00 [facility] 2021-06-10 2021-06-10 Emergency [facility] [id number] Univers 02:15:00 05:40:00 Latasha Stokes [id number] ity of [place] [id number] [facility] [id number] [address] 2021-06-10 2021-06-10 Emergency X [facility] ERT [id number] Univers 02:15:00 02:15:00 [facility] Results Test Description Test Time Test Comments Results Result Comments Source COMP. METABOLIC PANEL (91902) 2021-06-10 07:36:29 Test Item Value Reference Range Interpretation Comme nts NA (test code = 2102647978) 142 mmol/L 135-145 K (test code = 8723430340) 3.3 mmol/L 3.5-5.0 L CL (test code = 5499749600) 107 mmol/L 98-108 CO2 TOTAL (test code = 4809675621) 26 mmol/L 23-31 AGAP (test code = 0560101120) 2-16 BUN (test code = 8290496708) 15 mg/dL 7-23 GLUCOSE (test code = 4170548057) 131 mg/dL 70-110 H CREATININE (test code = 0.93 mg/dL 0.60-1.25 0793934871) TOTAL BILI (test code = 0.6 mg/dL 0.1-1.2 7804331861) CALCIUM (test code = 0843631316) 9.4 mg/dL 8.6-10.6 T PROTEIN (test code = 3111900840) 7.3 g/dL 6.3-8.2 ALBUMIN (test code = 9521251660) 4.4 g/dL 3.5-5.0 ALK PHOS (test code = 1517683500) 46 U/L 34-122 ALTv (test code = 1742-6) 26 U/L 5-50 AST(SGOT) (test code = 0419253258) 23 U/L 13-40 eGFR (test code = 2534425323) mL/min/1.73m2 CHRISS (test code = CHRISS) Association of Glomerular Filtration Rate (GFR) and Staging of Kidney Disease* + +-------- + ------+| GFR (mL/min/1.73 m2) ?| With Kidney Damage ?| ?Without Kidney Damage+ +-- + +| ?>90 ?| ?Stage one ?| ? Normal ?+ +------- + -------+| ?60-89 ?| ?Stage two ?| ? Decreased GFR ? + +-------- + ------+| ?30-59 ?| ?Stage three ?| ? Stage three ? + +-------- + ------+| ?15-29 ?| ?Stage four ? | ? Stage four ?+ +------- + -------+| ?<15 (or dialysis) ? ?| ?Stage five ? | ? Stage five ?+ +------- + -------+ *Each stage assumes the associated GFR level has been in effect for at least three months. ?Stages 1 to 5, with or without kidney disease, indicate chronic kidney disease. Notes: Determination of stages one and two (with eGFR >59mL/min/1.73 m2) requires estimation of kidney damage for at least three months as defined by structural or functional abnormalities of the kidney, manifested by either:Pathological abnormalities or Markers of kidney damage (including abnormalities in the composition of the blood or urine or abnormalities in imaging tests). Lab Interpretation (test code = Abnormal 53221-0) [facility] WITH [id number] 07:24:31 Test Item Value Reference Range Interpretation Comments WBC (test code = See_Comment [Automated 8690-2) message] The sy stem which generated this result transmitted reference range : 4.20 - 10.70 10*3/?L. The reference range was not used to interpret this result as normal/abnormal . RBC (test code = See_Comment [Automated 789-8) message] The sy stem which generated this result transmitted reference range : 4.26 - 5.52 10*6/?L. The reference range was not used to interpret this result as normal/abnormal . HGB (test code = 14.8 g/dL 12.2-16.4 718-7) HCT (test code = 41.3 % 38.4-49.3 4544-3) MCV (test code = 89.4 fL 81.7-95.6 787-2) MCH (test code = 32.0 pg 26.1-32.7 785-6) MCHC (test code = 35.8 g/dL 31.2-35.0 H 786-4) RDW-SD (test code = 38.1 fL 38.5-51.6 L 29194-2) RDW-CV (test code = 11.8 % 12.1-15.4 L 788-0) PLT (test code = See_Comment [Automated 777-3) message] The sy stem which generated this result transmitted reference range : 150 - 328 10*3/ ?L. The reference r candice was not used to interpret this result as normal/abnormal . MPV (test code = 9.9 fL 9.8-13.0 04280-0) NRBC/100 WBC (test See_Comment [Automat ed code = 4893035415) message] The system which generated this result transmitted reference range : 0.0 - 10.0 /100 WBCs. The refer ence range was not u sed to interpret th is result as normal/abnormal . NRBC x10^3 (test code <0.01 See_Comment [Auto mated = 1389944653) message] The s ystem which generated this result transmitted reference range : 10*3/?L. The reference range was not used to interpret this result as normal/abnormal . GRAN MAT (NEUT) % 62.5 % (test code = 770-8) IMM GRAN % (test code 0.30 % = 3619021291) LYMPH % (test code = 26.2 % 736-9) MONO % (test code = 9.5 % 5905-5) EOS % (test code = 1.1 % 713-8) BASO % (test code = 0.4 % 706-2) GRAN MAT x10^3(ANC) 4.39 10*3/uL 1.99-6.95 (test code = 8824945413) IMM GRAN x10^3 (test <0.03 0.00-0.06 code = 8973688438) LYMPH x10^3 (test code 1.84 10*3/uL 1.09-3.23 = 731-0) MONO x10^3 (test code 0.67 10*3/uL 0.36-1.02 = 742-7) EOS x10^3 (test code = 0.08 10*3/uL 0.06-0.53 711-2) BASO x10^3 (test code 0.03 10*3/uL 0.01-0.09 = 704-7) Lab Interpretation Abnormal (test code = 05482-1) [facility]"
[2022-08-09] MEDS ORDERED: IBUPROFEN 400 MG TAB ONE (14:19)
--- NOTE | 2022-08-09 15:12 | RAD REPORT ---
EXAM DESCRIPTION: RAD - Finger-Thumb Right - 08/09/2022 3:01 pm CLINICAL HISTORY: Pain COMPARISON: No comparisons FINDINGS/IMPRESSION: Fracture of the third distal phalanx along its proximal aspect with intra-artic ular extension to the distal interphalangeal joint. No other fractures identified.
--- NOTE | 2022-08-09 15:36 | ER ---
Nurse's Notes [facility] Name: Clifford Pulido Age: 26 yrs Sex: Male : 1995 Arrival Date: 08/09/2022 Time: 13:13 Bed DIS1 Private MD: Diagnosis: Nondisplaced fracture of distal phalanx of right middle finger Presentation: 08/09 13:41 Chief complaint: Patient states: he closed his right middle finger in the door at his ap3 apartment today at approx 1230. Coronavirus screen: At this time, the client does not indicate any symptoms associated with coronavirus-19. Ebola Screen: No symptoms or risks identified at this time. Initial Sepsis Screen: Does the patient meet any 2 criteria? Does the patient have a suspected source of infection? No. Patient's initial sepsis screen is negative. Risk Assessment: Do you want to hurt yourself or someone else? Patient reports no desire to harm self or others. Onset of symptoms was August 09, 2022 at 12:30. 13:41 Method Of Arrival: Ambulatory ap3 13:41 Acuity: GAST[place] 4 ap3 Triage Assessment: 13:43 General: Appears in no apparent distress. Behavior is calm, cooperative. Pain: ap3 Complains of pain in dorsal aspect of distal phalanx of right middle finger and dorsal aspect of middle phalanx of right middle finger Pain began suddenly. Neuro: Level of Consciousness is awake, alert, obeys commands, Oriented to person, place, time, situation. Cardiovascular: Patient's skin is warm and dry. Respiratory: Airway is patent Respiratory effort is even, unlabored, Respiratory pattern is regular, symmetrical. Historical: - Allergies: 13:42 unknown antibiotic; ap3 - Home Meds: 13:42 None [Active]; ap3 - PMHx: 13:42 None; ap3 - Immunization history:: Client reports having NOT received the Covid vaccine. Flu vaccine is not up to date. - Social history:: Smoking status: Patient denies any tobacco usage or history of. Patient uses alcohol, occasionally. Screenin:43 Humpty Dumpty Scale Fall Assessment Tool (age< 18yrs) Age 13 years and above (1 pt). ap3 Abuse screen: Denies threats or abuse. Nutritional screening: No deficits noted. Tuberculosis screening: No symptoms or risk factors identified. 13:[address] [facility] ED Fall Risk Assessment (Adult) History of falling in the last 3 months, ap3 including since admission No falls in past 3 months (0 pts) Confusion or Disorientation No (0 pts) Intoxicated or Sedated No (0 pts) Impaired Gait No (0 pts) Mobility Assist Device Used No (0 pt) Altered Elimination No (0 pt) Score/Fall Risk Level 0 - 2 = Low Risk. 13:44 Fall Risk No fall in past 12 months (0 pts). No secondary diagnosis (0 pts). No IV (0 ap3 pts). Ambulatory Aid- None/Bed Rest/Nurse Assist (0 pts). Gait- Normal/Bed Rest/Wheelchair (0 pts) Mental Status- Oriented to own ability (0 pts). Total Bean Fall Scale indicates No Risk (0-24 pts). Vital Signs: 13:41 BP 113 / 79; Pulse 87; Resp 17; Temp 98.0; Pulse Ox 99% ; Weight 95.25 kg; Height 6 ft. ap3 3 in. (190.50 cm); 13:41 Pain 8/10; ap3 13:41 Body Mass Index 26.25 (95.25 kg, 190.50 cm) ap3 ED Course: 13:13 Patient arrived in ED. am2 13:21 Chintan Haider PA is PHCP. cp 13:21 Ngozi Ferguson MD is Attending Physician. cp 13:42 Triage completed. ap3 13:43 Arm band placed on right wrist. ap3 15:02 XRAY Finger-Thumb RIGHT In Process Unspecified. EDMS 15:34 Maxwell Hensley MD is Referral Physician. cp 16:02 Patient has correct armband on for positive identification. jl7 16:02 No provider procedures requiring assistance completed. Patient did not have IV access jl7 during this emergency room visit. Finger splint to affected finger. Administered Medications: 14:25 Drug: Ibuprofen 800 mg Route: PO; jl7 15:15 Follow up: Response: No adverse reaction; Pain is decreased jl7 Medication: 16:02 VIS not applicable for this client. jl7 Outcome: 15:35 Discharge ordered by . cp 16:02 Discharged to home ambulatory. jl7 16:02 Condition: stable 16:02 Discharge instructions given to patient, Instructed on discharge instructions, follow up and referral plans. medication usage, Demonstrated understanding of instructions, follow-up care, medications, Prescriptions given X 2. 16:05 Patient left the ED. jl7 Signatures: Dispatcher [employer] EDMS Chintan Haider PA PA cp Leal, Jahala RN RN jl7 Mildred Aceves am2 Mildred Robles RN RN ap3 Corrections: (The following items were deleted from the chart) 13:43 13:42 PMHx: Asthma; ap3 ap3
--- NOTE | 2022-08-09 15:36 | EDPHYS ---
Physician Documentation [facility] Name: Clifford Pulido Age: 26 yrs Sex: Male : 1995 Arrival Date: 08/09/2022 Time: 13:13 Bed DIS1 Private MD: ED Physician Ngozi Ferguson HPI: 08/09 14:15 This 26 yrs old Male presents to ER via Ambulatory with complaints of Finger Injury. cp 14:15 The patient or guardian reports injury, swelling, tenderness. The complaints affect the cp right index finger. 14:15 Context: resulted from a crush injury, by a house door. Onset: The symptoms/episode cp began/occurred today. Associated signs and symptoms: The patient has no apparent associated signs or symptoms. Historical: - Allergies: 13:42 unknown antibiotic; ap3 - Home Meds: 13:42 None [Active]; ap3 - PMHx: 13:42 None; ap3 - Immunization history:: Client reports having NOT received the Covid vaccine. Flu vaccine is not up to date. - Social history:: Smoking status: Patient denies any tobacco usage or history of. Patient uses alcohol, occasionally. ROS: 14:20 Constitutional: Negative for body aches, chills, fever. cp 14:20 Eyes: Negative for injury, pain, redness, and discharge. cp 14:20 Cardiovascular: Negative for chest pain. 14:20 Respiratory: Negative for cough, shortness of breath, wheezing. 14:20 Abdomen/GI: Negative for abdominal pain, nausea, vomiting, and diarrhea. 14:20 MS/extremity: Positive for pain, swelling, tenderness, of the middle and distal phalanx right middle finger, Negative for decreased range of motion, paresthesias. 14:20 All other systems are negative. Exam: 14:15 Constitutional: The patient appears in no acute distress, alert, awake, non-toxic, well cp developed, well nourished. 14:15 Head/Face: Normocephalic, atraumatic. cp 14:15 Cardiovascular: Rate: normal. 14:15 Respiratory: the patient does not display signs of respiratory distress, Respirations: normal, no use of accessory muscles. 14:15 Musculoskeletal/extremity: Extremities: noted in the right hand: small abrasion noted middle phalanx with mild swelling extending from middle phalanx to distal phalanx, flexor and extensor tendons intact, pain to palpation noted proximal distal phalanx, Perfusion: the extremity is pink, the right middle finger Sensation intact. Vital Signs: 13:41 BP 113 / 79; Pulse 87; Resp 17; Temp 98.0; Pulse Ox 99% ; Weight 95.25 kg; Height 6 ft. ap3 3 in. (190.50 cm); 13:41 Pain 8/10; ap3 13:41 Body Mass Index 26.25 (95.25 kg, 190.50 cm) ap3 Procedures: 16:00 Splinting: Splint applied to right middle finger using finger splint, applied by nurse. cp Examined by me, post splint application: neurovascular intact, Patient tolerated well. MDM: 14:26 Patient medically screened. cp 15:35 Data reviewed: vital signs, nurses notes, radiologic studies, plain films. cp 15:35 Test interpretation: by ED physician or midlevel provider: plain radiologic studies. cp Counseling: I had a detailed discussion with the patient and/or guardian regarding: the historical points, exam findings, and any diagnostic results supporting the discharge/admit diagnosis, radiology results, the need for outpatient follow up, a hand specialist, to return to the emergency department if symptoms worsen or persist or if there are any questions or concerns that arise at home. 08/09 14:07 Order name: XRAY Finger-Thumb RIGHT; Complete Time: 15:34 cp 08/09 15:34 Interpretation: Reviewed. cp 08/09 15:33 Order name: Finger Splint; Complete Time: 16:01 cp Administered Medications: 14:25 Drug: Ibuprofen 800 mg Route: PO; jl7 15:15 Follow up: Response: No adverse reaction; Pain is decreased jl7 Disposition Summary: 08/09/22 15:35 Discharge Ordered Location: Home cp Problem: new cp Symptoms: have improved cp Condition: Stable cp Diagnosis - Nondisplaced fracture of distal phalanx of right middle finger cp Followup: cp - With: Maxwell Hensley MD - When: 1 week - Reason: Recheck today's complaints Discharge Instructions: - Discharge Summary Sheet cp - Finger Fracture, Adult cp Forms: - Medication Reconciliation Form cp - Thank You Letter cp - Antibiotic Education cp - Prescription Opioid Use cp Prescriptions: - Naprosyn 500 mg Oral Tablet - take 1 tablet by ORAL route 2 times per day take with food; 20 tablet; Refills: cp 0, Product Selection Permitted - Tramadol 50 mg Oral Tablet - take 1 tablet by ORAL route every 8 hours as needed; 12 tablet; Refills: 0, cp Product Selection Permitted Signatures: Dispatcher [employer] EDMS Chintan Haider PA PA cp Leal, Jahala, RN RN jl7 Mildred Robles RN RN ap3 Corrections: (The following items were deleted from the chart) 13:43 13:42 PMHx: Asthma; ap3 ap3 08/10 15:21 12 14:15 Musculoskeletal/extremity: Extremities: noted in the right hand: small cp abrasion noted middle phalanx with mild swelling extending from middle phalanx to distal phalanx, flexor and extensor tendons intact, pain to palpation noted proximal distal phalanx, cp
[2022-08-09 16:19] VITALS: BP 113/79; TEMP 98; O2SAT 99
== END 2022-08-09 16:05 | disposition home or self-care (01) ==
LOC: ER 13:12
PROC: 2W3JX1Z Immobilization of Right Finger using Splint (ICD-10-PCS; principal; 2022-08-09)
DX: S62.662A Nondisplaced fracture of distal phalanx of right middle finger, initial encounter for closed fracture (principal)
CPT/HCPCS: 99284

== ENCOUNTER 2022-12-20 15:31 | Emergency (ER) | payer BC, SELFPAY ==
--- OUTSIDE RECORDS SUMMARY | 2022-12-20 15:35 | XMS REPORT | Continuity of Care Document ---
:1995 Author Organization [facility] t Address [address] [place] [address] Care Team Providers Name Role Phone Asked, No Pcp Primary Care Physician Unavailable LAINA ELLIS Attending Clinician Unavailable LESTER SOLIZ Attending Clinician Unavailable Lester Carrillo Attending Clinician Jean Delgadillo DO Attending Clinician Latasha Vigil MD Attending Clinician LATASHA VIGIL Attending Clinician Unavailable Payers Payer Name Policy Type Policy Number Effective Date Expiration Date S [facility] [id number] 2014 00:00:00 Problems Condition Condition Condition Status Onset Resolution Last Treating Co mments Source Name Details Category Date Date Treatment Clinician Date No known No known Disease Unive rs active active ity of problems problems [facility] Allergies, Adverse Reactions, Alerts Allergy Allergy Status Severity Reaction(s) Onset Inactive Treating Comm ents Source Name Type Date Date Clinician NO KNOWN Drug Active Univers ALLERGIE Class ity of S [facility] Social History Social Habit Start Date Stop Date Quantity Comments Source Exposure to Not sure [facility]-CoV-2 (event) [facility] Gender identity [facility] Sexual orientation [facility] Alcohol intake 2019-05-18 2019-05-18 Current drinker [facility] 00:00:00 00:00:00 [facility] (finding) Tobacco use and 2019-05-18 2019-05-18 Smokeless [facility] exposure 00:00:00 00:00:00 tobacco non-user Hospital Sex Assigned At [birth year] [facility] Smoking Status Start Date Stop Date Source Unknown if ever smoked [facility] [place] [facility] Never smoked tobacco [facility] Medications Ordered Filled Start Stop Current Ordering Indication Dosage Frequency Signature Comments Components Source Medication Medication Date Date Medication? Clinician (SIG) Name Name ketorolac 2020-08 30mg 30 mg, Unive rs (TORADOL) 0-16 10-16 Slow IV ity of injection 09:45: 08:40 [place], [place] 30 mg 00 :00 ONCE, 1 Medical dose, On Branch 06/10/21 at 0445, Routine
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 Indication s: acute pain cephALEXin 2020-08 Yes [id number] 500mg Take 1 Univers (KEFLEX) 0-16 capsule [...] Indication s: acute pain cephALEXin 2020-08 Yes [id number] 500mg Take 1 Univers (KEFLEX) 0-16 capsule [...] Indication s: acute pain cephALEXin 2020-08 Yes [id number] 500mg Take 1 Univers (KEFLEX) 0-16 capsule by ity o f 500 mg 00:00: mouth 4 [place] capsule 00 (four) Medical times Branch daily. No known No No known Metho di medications - medication st 02:07: s [facility] 36 l traMADOL 2017-0 Yes 50mg Take 1 Univers (ULTRAM) 50 4-15 tablet by ity of mg tablet 00:00: mouth [place] 00 every 6 Medical (six) Branch hours as needed for Pain (scale 4-6). Jordy Mccain PA-C / Danyel Lara MD RANDY# [id number] DPS# [id number] x Lic.# [id number] NPI# [id number] traMADOL 2017-0 Yes 50mg Take 1 Univers (ULTRAM) 50 4-15 tablet by ity of mg tablet 00:00: mouth [place] 00 every 6 Medical (six) Branch hours as needed for Pain (scale 4-6). Jordy Mccain PA-C / Danyel Lara MD RANDY# [id number] DPS# [id number] x Lic.# [id number] NPI# [id number] traMADOL 2017-0 Yes 50mg Take 1 Univers (ULTRAM) 50 4-15 tablet by ity of mg tablet 00:00: mouth [place] 00 every 6 Medical (six) Branch hours as needed for Pain (scale 4-6). Jordy Mccain PA-C / Danyel Lara MD RANDY# [id number] DPS# [id number] x Lic.# [id number] NPI# [id number] Immunizations Ordered Filled Immunization Date Status Comments [facility] e Immunization Name Name Td 2016-12-08 Completed [facility] 00:00:00 [facility] Td 2016-12-08 Completed [facility] 00:00:00 [facility] Td 2016-12-08 Completed [facility] 00:00:00 [facility] Vital Signs Vital Name Observation Time Observation Value Comments Source Body temperature 2021-06-20 16:01:00 36.22 [facility] Respiratory rate 2021-06-20 16:01:00 18 /min [facility] Body height 2021-06-20 16:01:00 190.5 cm [facility] Body weight 2021-06-20 16:01:00 113.399 kg [facility] [place] [facility] BMI 2021-06-20 16:01:00 31.25 kg/m2 [facility] [place] [facility] Oxygen saturation in 2021-06-20 16:01:00 100 /min University of Arterial blood by [facility] gilberto Pulse oximetry Branch Systolic blood 2021-06-20 16:01:00 140 mm[Hg] [facility] [place] [facility] Diastolic blood 2021-06-20 16:01:00 99 [...] 2021-06-15 23:52:00 37.28 [facility] [place] [facility] Respiratory rate 2021-06-15 23:52:00 16 /min [facility] [place] [facility] Body height 2021-06-15 23:52:00 192 cm [facility] [place] [facility] Body weight 2021-06-15 23:52:00 113.399 kg [facility] [place] [facility] BMI 2021-06-15 23:52:00 30.76 kg/m2 [facility] [place] [facility] Oxygen saturation in 2021-06-15 23:52:00 98 /min University of Arterial blood by [facility] Pulse oximetry Branch Heart rate 2021-06-10 10:30:00 88 /min [facility] [place] [facility] Oxygen saturation in 2021-06-10 10:30:00 99 /min [facility] Arterial blood by [facility] gilberto Pulse oximetry Branch Systolic blood 2021-06-10 10:29:00 130 mm[Hg] [facility]iver [facility] [place] [facility] Diastolic blood 2021-06-10 10:29:00 76 mm[Hg] Unive [facility] [place] [facility] Body temperature 2021-06-10 10:28:00 36.83 Annie [facility] [place] [facility] Respiratory rate 2021-06-10 10:28:00 19 /min [facility] Body height 2021-06-10 08:00:57 190.5 cm [facility] Body weight 2021-06-10 08:00:57 113.399 kg [facility] BMI 2021-06-10 08:00:57 31.25 kg/m2 [facility] Procedures Procedure Date / Time Performed Performing Clinician Sourc e CONSENT/REFUSAL FOR 2021-06-20 15:57:09 Doctor Unassigned, No [facility] DIAGNOSIS AND Name [facility] TREATMENT NOTICE OF PRIVACY 2021-06-15 23:44:49 Doctor Unassigned, No [facility] PRACTICES Name [facility] ME RECMPL WND 2021-06-10 10:33:38 Latasha Vigil [facility] SCALP,EXTR 2.6-7.5 CM Medical Br anch XR CHEST 1 VW 2021-06-10 07:40:10 Latasha Vigil [facility] CT CERVICAL SPINE WO 2021-06-10 07:34:36 [facility]il [facility] CT 2021-06-10 07:34:36 Latasha Vigil [facility] MAXILLOFACIAL/MANDIBL Medical Br anch E WO CONTRAST CT HEAD WO CONTRAST 2021-06-10 07:34:36 Latasha Vigil [facility] COVID-19 (ID NOW 2021-06-10 07:34:00 Latasha Vigil [facility] RAPID TESTING) [facility] COMP. METABOLIC PANEL 2021-06-10 07:19:[address] [facility] ([id number]) [facility] CBC WITH DIFF 2021-06-10 07:19:00 Latasha Vigil [facility] Encounters Start End Encounter Admission Attending Care Care Encounter Source Date/Time Date/Time Type Type Clinicians Facility Department ID 2021-09-22 2021-09-22 Outpatient RADHA ELLIS [id number] Radha 10:30:00 10:30:00 LAINA pina 2021-09-20 2021-09-20 Outpatient RADHA ELLIS [id number] Radha 09:30:00 09:30:00 LAINA pina 2021-06-20 2021-06-20 [facility] [id number] Univers 11:02:00 12:03:00 KANGO ity [facility] 2021-06-20 2021-06-20 [id number] Univers 11:02:00 12:03:00 Lester Stokes [id number] [facility]y of [place] [id number] [facility] [id number] [address] 2021-06-15 2021-06-15 [facility] [id number] Univers 18:54:00 19:49:00 Jeananiceto [place] [id number] i [facility] [place] [id number] [facility] [id number] [address] 2021-06-15 2021-06-15 Emergency X [facility] ERT [id number] Univers 18:43[facility]10 2021-06-10 Emergency [facility] [id number] Univers 02:15:00 05:40:00 Nctami Stokes [id number] [facility] [place] [id number] [facility] [id number] [address] 2021-06-10 2021-06-10 Emergency [facility] ERT [id number] Univers 02:15:00 02:15:00 [facility] Results Test Description Test Time Test Comments Results Result Comments Source COMP. METABOLIC PANEL (63600) 2021-06-10 07:36:29 Test Item Value Reference Range Interpretation Comme nts NA (test code = 2187003785) 142 mmol/L 135-145 K (test code = 6216696156) 3.3 mmol/L 3.5-5.0 L CL (test code = 5892143149) 107 mmol/L 98-108 CO2 TOTAL (test code = 4941005761) 26 mmol/L 23-31 AGAP (test code = 3236175085) 2-16 BUN (test code = 1475986779) 15 mg/dL 7-23 GLUCOSE (test code = 0939899551) 131 mg/dL 70-110 H CREATININE (test code = 0.93 mg/dL 0.60-1.25 8363476744) TOTAL BILI (test code = 0.6 mg/dL 0.1-1.0 0689685741) CALCIUM (test code = 2558085236) 9.4 mg/dL 8.6-10.6 T PROTEIN (test code = 5862620770) 7.3 g/dL 6.3-8.2 ALBUMIN (test code = 7031624593) 4.4 g/dL 3.5-5.0 ALK PHOS (test code = 9030384182) 46 U/L 34-122 ALTv (test code = 1742-6) 26 U/L 5-50 AST(SGOT) (test code = 6179389037) 23 U/L 13-40 eGFR (test code = 6035609953) mL/min/1.73m2 CHRISS (test code = CHRISS) Association [...] tests). Lab Interpretation (test code = Abnormal 51153-1) [facility] WITH [id number] 07:24:31 Test Item Value Reference Range Interpretation Comments WBC (test code = See_Comment [Automated 7190-2) message] The sy stem which generated this [...] (test code = 38.1 fL 38.5-51.6 L 15827-7) RDW-CV (test code = 11.8 % 12.1-15.4 L 788-0) PLT (test code = See_Comment [Automated 777-3) message] The sy stem which generated this result transmitted reference range : 150 - 328 10*3/ ?L. The reference r candice was not used to interpret this result as normal/abnormal . MPV (test code = 9.9 fL 9.8-13.0 62122-8) NRBC/100 WBC (test See_Comment [Automat ed code = 7664402006) message] The system which generated this result transmitted reference range : 0.0 - 10.0 /100 WBCs. The refer ence range was not u sed to interpret th is result as normal/abnormal . NRBC x10^3 (test code <0.01 See_Comment [Auto mated = 9989146642) message] The s ystem which generated this result transmitted reference range : 10*3/?L. The reference range was not used to interpret this result as normal/abnormal . GRAN MAT (NEUT) % 62.5 % (test code = 770-8) IMM GRAN % (test code 0.30 % = 0257810144) LYMPH % (test code = 26.2 % 736-9) MONO % (test code = 9.5 % 5905-5) EOS % (test code = 1.1 % 713-8) BASO % (test code = 0.4 % 706-2) GRAN MAT x10^3(ANC) 4.39 10*3/uL 1.99-6.95 (test code = 9979461084) IMM GRAN x10^3 (test <0.03 0.00-0.06 code = 3158935665) LYMPH x10^3 (test code 1.84 10*3/uL 1.09-3.23 = 731-0) MONO x10^3 (test code 0.67 10*3/uL 0.36-1.02 = 742-7) EOS x10^3 (test code = 0.08 10*3/uL 0.06-0.53 711-2) BASO x10^3 (test code 0.03 10*3/uL 0.01-0.09 = 704-7) Lab Interpretation Abnormal (test code = 69522-9) [facility]"
[2022-12-20] MEDS ORDERED: FAMOTIDINE 20 MG/2 ML VIAL IV ONE (16:19)
[2022-12-20] MEDS ORDERED: MAGNES/ALUMIN/SIMET 30ML UCUP ONE (16:19)
[2022-12-20] MEDS ORDERED: NA CHLORIDE 0.9% 1,000 ML ONE (16:19)
[2022-12-20] MEDS ORDERED: LIDOCAINE VISCOUS 2% SOLN 15 ML UDC ONE (16:19)
[2022-12-20] MEDS ORDERED: ONDANSETRON 4 MG/2 ML VIAL ONE (16:19)
[2022-12-20 16:20] LABS: Absolute Lymphocytes (CBC) 1.5 K/uL (0.7-4.9); Hematocrit 45.9 % (39.6-49.0); MCV 90.4 fL (80-100); MPV 8.1 fL (7.6-11.3); RBC Red Blood Cell Count 5.07 M/uL (4.33-5.43)
[2022-12-20 16:46] LABS: Albumin 4.7 g/dL (3.4-5.0); Bilirubin Total 1.3 mg/dL (0.2-1.0); Potassium 3.7 mEq/L (3.5-5.1); Protein, Total 8.2 g/dL (6.4-8.2)
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
[2022-12-20 19:09] VITALS: BP 124/69; TEMP 97.7; O2SAT 98
== END 2022-12-20 18:27 | disposition home or self-care (01) ==
LOC: ER 15:31
DX: R10.13 Epigastric pain (principal); R11.0 Nausea
CPT/HCPCS: 85025; 36415; 83690; 80053; J2405; J7030

== ENCOUNTER 2023-12-24 18:32 | Emergency (ER) | payer BC ==
[2023-12-24 19:14] LABS: SARS-CoV-2 Antigen CONTROL BLUE LINE VIS/BG OK; SARS-CoV-2 Antigen Rapid Res Negative (Negative)
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
--- NOTE | 2023-12-24 21:15 | RAD REPORT ---
EXAM DESCRIPTION: RAD - Chest Pa And Lat (2 Views) - 12/24/2023 9:08 pm CLINICAL HISTORY: COUGH Chest pain. COMPARISON: CHEST PA AND LAT 2 VIEW dated 10/24/2014 FINDINGS: The lungs are clear. The heart is normal in size. No displaced fractures. IMPRESSION: No acute or concerning finding suspected.
[2023-12-24 22:15] VITALS: BP 143/90; TEMP 98.4; O2SAT 100
== END 2023-12-24 21:28 | disposition home or self-care (01) ==
LOC: ER 18:32
DX: J11.1 Influenza due to unidentified influenza virus with other respiratory manifestations (principal); Z11.52 Encounter for screening for COVID-19
CPT/HCPCS: 36415; 71046; 87070; 87081; 87804; 87811; 99283